=== PATIENT | female | born 1970 | race Caucasian/White ===

== ENCOUNTER → 2017-02-19 | Outpatient (CLI) | payer OTHER ==
[~2017-02-19] MED LIST: ACETAMINOPHEN PO; ADVAIR; ADVAIR 250-501 EACH IH; ADVAIR DISKU1 250/50 INH; ALBUTEROL 0.5ML INH; ALBUTEROL MININEB NEB; ALBUTEROL17 G1 IH; ALBUTEROL17 GM; ALBUTEROL17 GM INH; AMOXICILLIN PO; ATROVENT NEB; AZITHROMYCIN250 MG PO; CIPRO PO; DEPAKOTE PO; DOXYCYCLINE PO; DUONEB 2.5-0.5 M3 ML NEB; FAMOTIDINE PO; IMITREX50 MG PO; INDOMETHACIN50 MG PO; LEVAQUIN750 MG PO; LISINOPRIL10 MG PO; LORTAB 7.5-5001 TAB PO; NICOTINE TRANSD21 MG EXT; NORVASC PO; ONDANSETRON HCL4 M1 PO; ORUDIS75 M1 PO; PREDNISONE PO; PROTONIX PO; ROBITUSSIN-DM118 M1 PO; TAMIFLU75 M1 PO; VITAMIN D1000 UNIT PO
--- NOTE | ~2017-02-19 | CR63 ---
[facility] A Service of [facility] & [facility] RADIOLOGY TEXT RESULTS PATIENT: ROBERT MENDOZA LOCATION: [facility] : 70 UNIT #: [id number] AGE: [address]: Evelyn Vang MD SEX: F ORDER DR: [id number] [facility] [address] [place], [place] [address] [id number] O MR#: [id number] Acc #: [id number] NAME: ROBERT MENDOZA : 1970 SEX: F STUDY DATE/TIME: 02/19/2017 14:07 UNIT: [facility] ROOM: STUDY DESCRIPTION: CR Chest 2 View Attending Physician: Evelyn Vang M.D. Ordering Physician: Evelyn Vang M.D. Primary Care Physician: Evelyn Vang M.D. MEDICAL IMAGING REPORT This report is preliminary unless electronic signature is present EXAM PA and lateral chest, 02/19/2017. COMPARISON 10/29/2014 HISTORY COPD with acute cough and congestion for 1 week. FINDINGS PA and lateral views are obtained. The heart size is normal. Lungs are hyperexpanded, but clear. No acute process is seen. CONCLUSION COPD. No acute process identified. Dictated by... Ayush Rowe M.D. THIS IS AN ELECTRONICALLY VERIFIED REPORT Ayush Rowe M.D. at 02/20/2017 7:28 AM ESTHER/ham TD: 02/19/2017 18:04 JOB #: [id number] MEDICAL IMAGING REPORT Page 1 of 1 COPY
== END | disposition home or self-care (01) ==
LOC: CRAD 13:44
DX: J44.9 Chronic obstructive pulmonary disease, unspecified (principal)
CPT/HCPCS: 71020

== ENCOUNTER 2017-05-13 01:20 | Emergency (ER) | payer OTHER ==
[~2017-05-13] VITALS: Ht 165.1 cm; Wt 61.2 kg
--- NOTE | ~2017-05-13 | EKG ---
PATIENT: ROBERT MENDOZA UNIT #: [id number] Ventricular Rate: 59 BPM Atrial Rate: 59 BPM P-R Interval: 140 ms QRS Duration: 88 ms Q-T Interval: 448 ms QTC Calculation(Bezet): 443 ms P Surry: 79 degrees Calculated R Surry: 78 degrees Calculated T Surry: 72 degrees Diagnosis Line: Diagnosis Line: Sinus bradycardia Diagnosis Line: Otherwise normal ECG Diagnosis Line: No previous ECGs available Diagnosis Line: Confirmed by ERYN LEE MD ([id number]) on 05/15/2017 Diagnosis Line: 10:46:06 PM INTERPRETING MD: JESUS DIAZ
--- NOTE | ~2017-05-13 | CT18 ---
[facility] A Service of [facility] & [facility] RADIOLOGY TEXT RESULTS PATIENT: ROBERT MENDOZA LOCATION: [facility] : 70 UNIT #: [id number] AGE: [address]: Ayush Hoskins MD SEX: F ORDER DR: [id number] [facility] [address] [place], [place] [address] [id number] E MR#: [id number] Acc #: [id number] NAME: ROBERT MENDOZA : 1970 SEX: F STUDY DATE/TIME: 05/13/2017 1:36 UNIT: [facility] ROOM: STUDY DESCRIPTION: CT Angio Head Stroke Attending Physician: Ayush Hoskins M.D. Ordering Physician: Ayush Hoskins M.D. Primary Care Physician: Evelyn Vang M.D. MEDICAL IMAGING REPORT This report is preliminary unless electronic signature is present EXAM CT angiogram of the head HISTORY FINDINGS Please see CT angiogram of the neck for results. Dictated by... Bernabe Hale M.D. THIS IS AN ELECTRONICALLY VERIFIED REPORT Bernabe Hale M.D. at 05/14/2017 1:00 PM Amaury TD: 05/14/2017 10:35 JOB #: [id number] MEDICAL IMAGING REPORT Page 1 of 1 COPY
--- NOTE | ~2017-05-13 | CT24 ---
[facility] A Service of [facility] RADIOLOGY TEXT RESULTS PATIENT: ROBERT MENDOZA LOCATION: [facility] : 70 UNIT #: [id number] AGE: [address]: Ayush Hoskins MD SEX: F ORDER DR: [id number] [facility] [address] [place], [place] [address] [id number] E MR#: [id number] Acc #: [id number] NAME: ROBERT MENDOZA : 1970 SEX: F STUDY DATE/TIME: 05/13/2017 1:36 UNIT: [facility] ROOM: STUDY DESCRIPTION: CT Angio Neck Stroke Attending Physician: Ayush Hoskins M.D. Ordering Physician: Ayush Hoskins M.D. Primary Care Physician: Evelyn Vang M.D. MEDICAL IMAGING REPORT This report is preliminary unless electronic signature is present EXAM CTA head and neck INDICATION Focal neurological deficit. Slurred speech. Right-sided facial droop. Severe headache, right arm drift. TECHNIQUE CT angiography of the head and neck utilizing 100 mL Isovue-370 IV contrast. Coronal and sagittal 3-D MIP reconstructions were obtained. Curved planar reconstructions were acquired. Volume rendered and surface rendered reconstructions were also reviewed. This CT exam was performed with one or more of the following radiation dose reduction techniques: automatic exposure control, adjustment of mA and/or kV according to patient size, and iterative reconstruction. COMPARISON CT head dated 05/13/2017 and 11/18/2014. FINDINGS CTA NECK: Evaluation for significant carotid arterial stenosis is based upon the NASCET criteria. There is a three-vessel aortic arch. The internal carotid arteries are widely patent. There is no evidence of a significant vascular stenosis. No significant atherosclerotic disease. Both vertebral arteries are widely patent. 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 [facility] A Service of [facility] RADIOLOGY TEXT RESULTS PATIENT: ROBERT MENDOZA LOCATION: [facility] : 70 UNIT #: [id number] AGE: [address]: Ayush Hoskins MD SEX: F ORDER DR: CTA HEAD: The intracranial internal carotid arteries are widely patent. No evidence of atherosclerotic disease. The A1 segment of the right anterior cerebral artery is hypoplastic. The A2 segment is reconstituted via the anterior communicating artery. The middle cerebral arteries are normal in appearance. 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 The left posterior cerebral artery and the left posterior communicating artery are widely patent. Vertebral basilar system is normal. No evidence of a significant vascular stenosis, thrombosis, or aneurysm. The left vertebral artery is dominant. No dural venous thrombus. There is mild mucosal thickening throughout the paranasal sinuses. No air-fluid level. No acute osseous abnormalities. IMPRESSION No evidence of a significant vascular stenosis, thrombosis, or aneurysm. Initial interpretation was provided by Dr. Vladimir Mccarthy at 02:50 on 05/13/2017. Dictated by... Bernabe Hale M.D. THIS IS AN ELECTRONICALLY VERIFIED REPORT Bernabe Hale M.D. at 05/14/2017 1:00 PM ERNESTO/jered TD: 05/14/2017 10:34 JOB #: [id number] MEDICAL IMAGING REPORT Page 1 of 1 COPY
--- NOTE | ~2017-05-13 | CT72 ---
[facility] A Service of [facility] RADIOLOGY TEXT RESULTS PATIENT: ROBERT MENDOZA LOCATION: [facility] : 70 UNIT #: [id number] AGE: [address]: Ayush Hoskins MD SEX: F ORDER DR: [id number] [facility] [address] [place], [place] [address] [id number] E MR#: [id number] Acc #: [id number] NAME: ROBERT MENDOZA : 1970 SEX: F STUDY DATE/TIME: 05/13/2017 1:32 UNIT: [facility] ROOM: STUDY DESCRIPTION: CT Head Wo Contrast Stroke Attending Physician: Ayush Hoskins M.D. Ordering Physician: Ayush Hoskins M.D. Primary Care Physician: Evelyn Vang M.D. MEDICAL IMAGING REPORT This report is preliminary unless electronic signature is present EXAM CT head, noncontrast, 05/13/2017 HISTORY 47-year-old female in the ED after new onset neurologic deficit beginning at 22:30 hours on 05/12/2017. Slurred speech, right side facial droop and right arm weakness. Severe headache. TECHNIQUE CT examination of the head without IV contrast. This CT exam was performed with one or more of the following radiation dose reduction techniques: automatic control, adjustment of mA and/or kV according to patient size, and iterative reconstruction. FINDINGS The examination is negative. No evidence of intracranial hemorrhage, mass, mass effect, cerebral edema or hydrocephalus. IMPRESSION 1. Negative noncontrast head CT examination. 2. No change since 11/18/2014. 3. If there was ongoing clinical suspicion for acute ischemic insult, followup MRI examination of the brain is recommended. Dictated by... Philip Mccarthy M.D. THIS IS AN ELECTRONICALLY VERIFIED REPORT Philip Mccarthy M.D. at 05/13/2017 5:26 AM MARIO/car TD: 05/13/2017 03:38 JOB #: [id number] [facility] A Service of [facility] RADIOLOGY TEXT RESULTS PATIENT: ROBERT MENDOZA [id number] [birth year] UNIT #: [id number] AGE: [address]: Ayush Hoskins MD SEX: F ORDER DR: MEDICAL IMAGING REPORT Page 1 of 1 COPY
[2017-05-13 02:17] LABS: BASOPHIL# 0.1 X10e3 (0-0.3); BASOPHIL% 0.8 % (0-2.5); EOSINOPHIL# 0.4 X10e3 (0-0.7); EOSINOPHIL% 3.5 % (0.0-7.0); HEMATOCRIT 37.4 % (35.0-45.0); HEMOGLOBIN 12.4 gm/dL (12.0-16.0); LYMPHOCYTE# 2.9 X10e3 (1.0-3.5); LYMPHOCYTE% 27.8 % (17.0-45.0); MEAN CELL VOLUME 90.7 FL (83-96); MEAN CORPUSCULAR HGB CONC 33.1 g/dL (30-36); MEAN PLATELET VOLUME 7.3 FL (6.5-11.5); MONOCYTE# 0.6 X10e3 (0-1.0); MONOCYTE% 5.4 % (3.0-12.0); NEUTROPHIL# 6.5 X10e3 (1.5-7.1); NEUTROPHIL% 62.5 % (40-75); PLATELET COUNT 234 X10e3 (140-420); RED BLOOD COUNT 4.13 X10e (3.90-5.30); WHITE BLOOD COUNT 10.4 X10e3 (4.0-10.5)
[2017-05-13 02:20] LABS: DIFF IND NO
[2017-05-13 02:31] LABS: PROTHROMBIN TIME (PATIENT) 11.3 SECONDS (10.0-11.7)
[2017-05-13 02:40] LABS: ALBUMIN SERUM 3.8 g/dL (3.5-5.0); BILIRUBIN, DIRECT 0.1 mg/dL (0.0-0.2); BILIRUBIN,INDIRECT 0.1 mg/dL (0.0-0.9); BILIRUBIN,TOTAL 0.2 mg/dL (0.2-2.0); BUN/CREATININE RATIO 13.33; CALCIUM SERUM 8.2 mg/dL (8.4-10.2); CREATININE SERUM 0.9 mg/dL (0.6-1.4); GLOM FILT RATE Estimated 76.2 mL/min (>60); POTASSIUM 3.1 mmol/L (3.5-5.1)
[2017-05-13 03:00] LABS: POC - CREATININE 1.06 mg/dL (0.44-1.03)
== END 2017-05-13 05:07 | disposition home or self-care (01) ==
LOC: CED 01:20
PROVIDERS: Emergency Medicine
DX: G43.809 Other migraine, not intractable, without status migrainosus (principal); E87.6 Hypokalemia; I10 Essential (primary) hypertension; J45.909 Unspecified asthma, uncomplicated; J44.9 Chronic obstructive pulmonary disease, unspecified; F17.200 Nicotine dependence, unspecified, uncomplicated; Z90.49 Acquired absence of other specified parts of digestive tract; Z98.51 Tubal ligation status; Z98.890 Other specified postprocedural states; Z88.5 Allergy status to narcotic agent
CPT/HCPCS: 36415; 70450; 70496; 70498; 80048; 80076; 82565; 85025; 85610; 85730; 93005; 96361; 96374; 96375; 99285; J0780; J1100; J1200; J1885; Q9967